=== PATIENT | male | born 1995 | race African-American/Black ===

== ENCOUNTER 2016-07-24 09:02 | Emergency (ER) | payer OTHER ==
[~2016-07-24] VITALS: Ht 177.8 cm; Wt 72.0 kg
[2016-07-24 09:09] VITALS: BP 129/88; PULSE 95; RESP 22; TEMP 98; O2SAT 99
[2016-07-24 09:38] VITALS: BP 128/72; PULSE 68; RESP 16; O2SAT 100
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
[2016-07-24 09:47] LABS: AUTOMATED NEUTROPHIL # 4.4 TH/MM3 (1.8-7.7); BASOPHIL % 0.3 % (0.0-2.0); EOSINOPHIL # 0.1 TH/MM3 (0-0.4); EOSINOPHIL % 0.7 % (0.0-4.0); HEMATOCRIT 36.1 % (39.0-51.0); HEMO FLAGS DIFF FINAL; LYMPH % 28.9 % (9.0-44.0); LYMPHOCYTE # 2.1 TH/MM3 (1.0-4.8); MEAN CELL VOLUME 84.8 FL (80.0-100.0); MEAN CORPUSCULAR HEMOGLOBIN 28.1 PG (27.0-34.0); MEAN CORPUSCULAR HGB CONC 33.2 % (32.0-36.0); NEUT % 61.1 % (16.0-70.0); PLATELET COUNT 156 TH/MM3 (150-450); RED BLOOD COUNT 4.25 MIL/MM3 (4.50-5.90); RED CELL DISTRIBUTION WIDTH 12.8 % (11.6-17.2); WHITE BLOOD COUNT 7.2 TH/MM3 (4.0-11.0)
[2016-07-24 10:08] LABS: BICARBONATE 25.4 MEQ/L (21.0-32.0); POTASSIUM 3.9 MEQ/L (3.5-5.1)
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
[2016-07-24] MEDS ORDERED: IOHEXOL 350 MG/ML 10 ML VIAL (for RAD DIAG) IV ONE (10:41)
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
[2016-07-24 12:08] VITALS: BP 124/63; PULSE 64; RESP 16; O2SAT 99
[2016-07-24 13:31] VITALS: BP 125/61; PULSE 60; RESP 16; O2SAT 100
== END 2016-07-24 15:44 | disposition home or self-care (01) ==
LOC: NEPC 09:02
DX: S20.222A Contusion of left back wall of thorax, initial encounter (principal); F10.120 Alcohol abuse with intoxication, uncomplicated; Y90.5 Blood alcohol level of 100-119 mg/100 ml; V49.9XXA Car occupant (driver) (passenger) injured in unspecified traffic accident, initial encounter
CPT/HCPCS: 70450; 71010; 72125; 72170; 74177; 80048; 80307; 85025; 99284; Q9967